=== PATIENT | male | born 1950 | race African-American/Black ===

== ENCOUNTER 2016-10-09 06:39 | Day surgery (SDC) | payer MEDICARE, OTHER ==
[2016-10-09] VITALS (7 sets, daily range): BP systolic 163–178; BP diastolic 79–101; PULSE 49–84; RESP 16–20; TEMP 96.4–97.7; O2SAT 92–99
[~2016-10-09] VITALS: Ht 185.4 cm; Wt 99.0 kg
[~2016-10-09 06:39] MED LIST: AMLO10TA2 PO; CALC0.5C6 PO; CARV12.52 PO; CLON0.1T PO; FINA5TAB2 PO; SEVEL800 PO; SPIR25TA PO
[2016-10-09] MEDS ORDERED: SODIUM CHLORIDE 5 ML FLUSH PRN IVF (07:15)
[2016-10-09 07:36] LABS: AUTOMATED NEUTROPHIL # 3.5 TH/MM3 (1.8-7.7); BASOPHIL % 0.4 % (0.0-2.0); EOSINOPHIL # 0.1 TH/MM3 (0-0.4); EOSINOPHIL % 2.3 % (0.0-4.0); HEMATOCRIT 27.5 % (39.0-51.0); LYMPHOCYTE # 1.6 TH/MM3 (1.0-4.8); MEAN CORPUSCULAR HEMOGLOBIN 24.1 PG (27.0-34.0); MEAN CORPUSCULAR HGB CONC 31.3 % (32.0-36.0); MONO % 12.5 % (0.0-8.0); NEUT % 57.8 % (16.0-70.0); PLATELET COUNT 120 TH/MM3 (150-450); RED BLOOD COUNT 3.57 MIL/MM3 (4.50-5.90); RED CELL DISTRIBUTION WIDTH 18.8 % (11.6-17.2)
[2016-10-09 07:38] LABS: HEMO FLAGS AUTO DIFF
[2016-10-09 07:45] LABS: APTT (PATIENT) 41.1 SEC (24.3-30.1); INTERNATIONAL NORMALIZED RATIO 1.1 RATIO; PROTHROMBIN TIME - PATIENT 12.2 SEC (9.8-11.6)
[2016-10-09 08:04] LABS: BICARBONATE 28.7 MEQ/L (21.0-32.0); POTASSIUM 3.7 MEQ/L (3.5-5.1)
[2016-10-09] MEDS ORDERED: VANCOMYCIN 1,000 MG/NS 250 ML IV ONE ×2 (08:15)
[2016-10-09 08:31] LABS: SCAN/DIFF AUTO DIFF CONFIRMED
[2016-10-09 08:32] LABS: KERATOCYTES OCC (NORMAL)
[2016-10-09] MEDS ORDERED: PROPOFOL 200 MG/20 ML AMP IV ONE (08:38)
[2016-10-09 08:47] LABS: CALCIUM-PROTEIN CORRECTED 6.7 MG/DL (8.5-10.1)
[2016-10-09] MEDS ORDERED: ceFAZolin 2 GM PREMIX 50 ML IV ONE (09:00)
[2016-10-09] MEDS ORDERED: SODIUM CHLORIDE 5 ML FLUSH BID IVF SCH (09:00)
[2016-10-09] MEDS ORDERED: fentaNYL CITRATE 250 MCG/5 ML AMP ONE (09:00)
[2016-10-09] MEDS ORDERED: MIDAZOLAM HCL 5 MG/5 ML VIAL ONE (09:00)
[2016-10-09] MEDS ORDERED: LIDOCAINE 1%/EPINEPHrine 1:100,000 SOLN 20 ML VIAL ONE (09:05)
--- NOTE | 2016-10-09 09:56 | PD.RAD ---
Post Procedure Progress Note Pre Procedure Diagnosis: (1) ESRD on peritoneal dialysis (2) Dialysis catheter clot or failure Post Procedure Diagnosis: (1) ESRD on peritoneal dialysis (2) Dialysis catheter clot or failure Procedure Date: Oct 09, 2016 Supervising Radiologist: Bharath Avila Anesthesia: Local, Conscious Sedation Plan of Activity Patient to Unit: [facility] Patient Condition: Good See PACS Report for procedural detail/treatment Central Venous Access Device Procedure 1 Left Internal Jugular Hemodialysis Catheter Tunneled Placement dual lumen Bharath Avila MD Oct 09, 2016 09:56
[2016-10-09] MEDS ORDERED: CARV12.5 PO (12:27)
[2016-10-09] MEDS ORDERED: LACTATED RINGER'S 1000 ML IV SCH (14:00)
[2016-10-09] MEDS ORDERED: SODIUM CHLORID 0.9% 500 ML IV SCH (14:00)
[2016-10-09] MEDS ORDERED: ceFAZolin 1,000 MG/NS 100 ML IV SCH ×2 (14:00)
[2016-10-09] MEDS ORDERED: INSULIN HUMAN REGULAR 1,000 UNITS/10 ML VIAL SQ PRN (14:00)
[2016-10-09] MEDS ORDERED: METOPROLOL TARTRATE 25 MG TAB PO PRN (14:00)
[2016-10-09] MEDS ORDERED: MIDAZOLAM HCL 2 MG/2 ML VIAL ONE (14:05)
--- NOTE | 2016-10-09 14:08 | RADRPT ---
EXAM DATE/TIME: 10/09/2016 08:59 [place] COMPARISON: No previous studies available for comparison. INDICATIONS : Patient is in need of placement of a left sided permacath for continued dialysis treatment due to PD catheter infection. MEDICAL HISTORY : History of renal insufficiency, CAD, HTN, LA, hypercholesteremia, polycystic kidney disease. SURGICAL HISTORY : History of PD cath placement and removal, permacath placement and removal, TURP, CABG, bilateral part ial renal artery emobolization. ENCOUNTER: Initial ACUITY: 2 months PAIN SCORE: 0/10 FLUORO TIME: 1.0 minutes SEDATION TIME: 30 minutes ACCESS: Left internal jugular vein SEDATION: 1.) 3.5 mg midazolam (Versed) IV 2.) 125 mcg fentanyl (Sublimaze) IV Prophylactic antibiotics were administered with appropriate pre-procedure timing. Vancomycin within 2 hours of procedure, Ancef (or alternative) within 1 hour of procedure. DEVICE: 1. 14 Slov[place] dual lumen 27 cm Conde II Plus catheter PROCEDURE : 1. Ultrasound-guided venipuncture. 2. PermaCath placement. 3. Conscious sedation with continuous EKG and oximetry monitoring. The risks, benefits and alternatives to the procedure were explained and verbal and written consent w as obtained. The site was prepped in sterile fashion. Full sterile technique was used, including ca p, mask, sterile gloves and gown and a large sterile sheet. Hand hygiene and 2% chlorhexidine and/or betadine/alcohol prep was utilized per protocol for cutaneous antisepsis. The skin and subcutaneous tissues were infiltrated with local anesthetic solution. With ultrasound and fluoroscopic guidance a dermatotomy was created over the prescribed vein. A micr opuncture set was used to access the targeted vein and serial dilatation was performed to accept the prescribed length catheter. A subcutaneous tunnel was created in a retrograde fashion the catheter w as pulled through the tunnel. The catheter was flushed and assembled and locked with heparin. The c atheter was sutured in place. Conscious sedation was performed with the prescribed dosages and duration as above. The patient tole rated the procedure well and there were no complications. EKG and oximetry remained stable throughou t the procedure. The patient was sent to post anesthesia recovery in stable condition. CONCLUSION: Uncomplicated PermaCath placement as above. Bharath Avila MD on October 09, 2016 at 14:05 Board Certified Radiologist. This report was verified electronically.
[2016-10-09] MEDS ORDERED: BUPIVACAINE/EPINEPHRINE 0.5% PF 30 ML VIAL ONE (14:32)
[2016-10-09] MEDS ORDERED: ACETAMINOPHEN/HYDROcodone 325 MG/7.5 MG TAB PO PRN (15:45)
[2016-10-09] MEDS ORDERED: DO NOT ADM ANY ANTICOAGULANT DRUGS XX PRN (15:45)
--- NOTE | 2016-10-10 15:09 | EKG ---
Date Performed: 10/09/2016 Time Performed: 13:15:12 PTAGE: 66 years EKG: Sinus rhythm WITH HIGH GRADE AV BLOCK MARKED LEFT AXIS DEVIATION LEFT BUNDLE BRANCH BLOCK Since prior tracing pat ient developed high grade AV block and what appears to be episodes of complete heart block with times of idioventricular escape rhythm. All of this is new compare to the prior tracing. Clinical correla tion is recommended ABNORMAL ECG PREVIOUS TRACING : 10/22/2014 10.08 DOCTOR: Dorothy Anton Interpretating Date/Time 10/10/2016 15:08:49
--- NOTE | 2016-10-13 17:23 | MP ---
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 PROCEDURE Removal of peritoneal dialysis catheter. SURGEON Saira Donald MD ANESTHESIA Local MAC DESCRIPTION OF PROCEDURE With the patient in the supine position IV sedation was induced, the abdomen thoroughly prepped with Betadine and draped in a sterile fashion. Following a protocol time-out, the skin and subcutaneous tissue surrounding the old catheter placement scar was infiltrated with 0.5% Marcaine with epinephrine. The old scar was elliptically excised and dissection continued sharply. Underlying sclerotic tissue. The catheter cuffs imbedded within the rectus muscle and fascia was mobilized free. The intraperitoneal portion of the catheter was removed entirely. The subcutaneous catheter cuff was also dissected free of adhesions and subcutaneous portion of the catheter removed entirely as well. Strict hemostasis was assured. The wound was irrigated with saline and the incision closed with continuous subcuticular 5-0 Monocryl. Reinforced with Steri-Strips and covered with sterile gauze. Instrument, needle, sponge count correct x2. No operative complications. The patient returned to the recovery room in stable condition having tolerated procedure well. MD CHALO Rivera/maria victoria /5:44 PM /5:16 PM [facility]ITALSl[facility]
== END 2016-10-09 12:10 | disposition home or self-care (01) ==
LOC: HROP 06:39 → HRIP 06:45 → HROP 12:10
PROVIDERS: ATTEND Surgery Vascular Surgery
DX: T85.71XA Infection and inflammatory reaction due to peritoneal dialysis catheter, initial encounter (principal); N18.6 End stage renal disease; I12.0 Hypertensive chronic kidney disease with stage 5 chronic kidney disease or end stage renal disease; I25.10 Atherosclerotic heart disease of native coronary artery without angina pectoris; E78.00 Pure hypercholesterolemia, unspecified; I25.2 Old myocardial infarction; Z95.1 Presence of aortocoronary bypass graft; Z99.2 Dependence on renal dialysis
CPT/HCPCS: 00730; 36558; 49422; 76937; 77001; 80048; 84155; 85025; 85610; 85730; 93005; 99152; 99153; C1750; C1769; J0690; J1644; J2250; J3010; J3370; J7050

== ENCOUNTER 2016-10-11 21:16 | Emergency (ER) | payer MEDICARE, OTHER ==
[~2016-10-11] VITALS: Ht 185.4 cm; Wt 90.0 kg
[~2016-10-11 21:16] MED LIST changes: -CALC0.5C6 PO; +CARV12.5 PO; -CARV12.52 PO
[2016-10-11 21:26] VITALS: BP 222/93; PULSE 97; RESP 16; TEMP 98; O2SAT 98
[2016-10-11] MEDS ORDERED: GELFOAM SIZE 100 TOPICAL ONE (21:45)
[2016-10-11] MEDS ORDERED: niCARdipine INJ 25 MG in SODIUM CHLOR 0.9% 250 ML INJ 250 ML IV SCH (21:45)
[2016-10-11] MEDS ORDERED: SODIUM CHLORIDE 0.9% FLUSH 5 ML FLUSH IVF PRN (21:45)
[2016-10-11 21:53] VITALS: BP 211/95; PULSE 82; RESP 16; O2SAT 94
[2016-10-11 23:00] VITALS: BP 201/98; PULSE 92; RESP 16; O2SAT 95
--- NOTE | 2016-10-11 23:02 | PD ---
HPI Chief Complaint: Bleeding Time Seen by Provider: 21:30 Travel History International Travel<30 days: No Contact w/Intl Traveler<30days: No Traveled to known affect area: No History of Present Illness HPI 66-year-old male with end-stage renal disease came in for continuous bleeding from his scrotal wound. Patient has chronic hydradenitis in his scrotal area and from time to time they open up and drain pus. He had an opening on the left side of his scrotal skin 2-3 days ago which drained pus but since then has been bleeding continuously. He was at the hemodialysis center where they tried to cauterize the wound and finished the dialysis but when it continued to bleed he was recommended to come to the emergency room. He was given a dose of clonidine because of his blood pressure was high. Here his blood pressure was 222/149 upon arrival. Patient is in somewhat of a discomfort in his scrotal area but says the pain is not excruciating. As per the is not the first time this has happened. Patient is awake and talking. He is answering questions appropriately. When his pants and underwear was taken out to examine the area his underwear was covered in blood. [facility] Past Medical History Narrative Medical List of his past medical history is reviewed from the nursing note. Anemia: Yes Arthritis: No Asthma: Yes (YEARS AGO) Autoimmune Disease: No Anxiety: No Depression: No Heart Rhythm Problems: No Cancer: No Cardiovascular Problems: Yes (HEART ATTACK 2009) High Cholesterol: Yes Chemotherapy: No Chest Pain: Yes (cabgx2) Congestive Heart Failure: No COPD: No Cerebrovascular Accident: No Diabetes: No Dialysis: Yes (PERITONEAL ) Diminished Hearing: No Endocrine: No Gastrointestinal Disorders: Yes GERD: No Glaucoma: No Gout: Yes Genitourinary: No Headaches: No Hepatitis: No Hiatal Hernia: No Hypertension: Yes Immune Disorder: No Implanted Vascular Access Dvce: Yes Kidney Stones: No Musculoskeletal: No Neurologic: No Psychiatric: No Reproductive: No Respiratory: No Migraines: No Myocardial Infarction: No Radiation Therapy: No Renal Failure: Yes (peritoneal dialysis [id number]) Seizures: No Sickle Cell Disease: No Sleep Apnea: No Thyroid Disease: No Ulcer: No PNEUMOCCOCAL Vaccine (Year): 2 Past Surgical History Abdominal Surgery: Yes (2 PREVIOUS PERITONEAL DIALYSIS CATHETERS) AICD: No Appendectomy: No Arteriovenous Shunt: No Body Medical Devices: CARDIAC STENTS X1. LEFT UPPER CHEST PERM CATH, RIGHT ABD PERITONEAL CATH Cardiac Surgery: Yes (CABG X3, 1 STENT) Cholecystectomy: No Ear Surgery: No Endocrine Surgery: No Eye Surgery: No Genitourinary Surgery: Yes (TURP) Gynecologic Surgery: No Insulin Pump: No Joint Replacement: No Neurologic Surgery: No Oral Surgery: No Pacemaker: No Thoracic Surgery: Yes (LEFT PERM CATH INSERTED TODAY 10/09/16. 2 PREVIOUS PERM CATH) Other Surgery: Yes (PERITONEAL DIALYSIS ACCESS PLACED 2006 vas cath rt) Social History Alcohol Use: No Tobacco Use: No (QUIT 09/11 PPD) Substance Use: No Allergies-Medications (Allergen,Severity, Reaction): Coded Allergies: No Known Allergies (Verified , 10/11/16) Comments No known drug allergies. Reported Meds & Prescriptions Reported Meds & Active Scripts Active Reported Coreg (Carvedilol) 12.5 Mg Tab 12.5 Mg PO DAILY PRN Renvela (Sevelamer Carbonate) 800 Mg Tab 800 Mg PO TID Clonidine (Clonidine HCl) 0.1 Mg Tab 0.1 Mg PO BID Spironolactone 25 Mg Tab 25 Mg PO DAILY Finasteride 5 Mg Tab 5 Mg PO DAILY Do not crush. Amlodipine (Amlodipine Besylate) 10 Mg Tab 10 Mg PO BID Narrative Medication List of his home medications reviewed from the nursing note. Review of Systems Except as stated in HPI: all other systems reviewed are Neg Physical Exam Narrative GENERAL: Awake, alert, moderate distress SKIN: Warm and dry. HEAD: Atraumatic. Normocephalic. EYES: Pupils equal and round. No scleral icterus. No injection or drainage. ENT: No nasal bleeding or discharge. Mucous membranes pink and moist. NECK: Trachea midline. No JVD. CARDIOVASCULAR: Regular rate and rhythm. No murmur appreciated. RESPIRATORY: No accessory muscle use. Clear to auscultation. Breath sounds equal bilaterally. GASTROINTESTINAL: Abdomen soft, non-tender, nondistended. Hepatic and splenic margins not palpable. : Swollen scrotum, nontender, left scrotal wall in the inferior part has an opening of less than 0.5 mm that's oozing blood slowly. MUSCULOSKELETAL: No obvious deformities. No clubbing. No cyanosis. No edema. NEUROLOGICAL: Awake and alert. No obvious cranial nerve deficits. Motor grossly within normal limits. Normal speech. PSYCHIATRIC: Appropriate mood and affect; insight and judgment normal. Data Data Last Documented VS Vital Signs Date Time Temp Pulse Resp B/P Pulse Ox O2 Delivery O2 Flow Rate FiO2 10/12/16 00:01 94 18 186/88 95 Room Air 10/11/16 21:26 98.0 Orders Ecg Monitoring (10/11/16 21:37) Iv Access Insert/Monitor (10/11/16 21:37) Oximetry (10/11/16 21:37) Sodium Chloride 0.9% Flush (Ns Flush) (10/11/16 21:45) Nicardipine Inj (Cardene Inj) (10/11/16 21:45) Gelfoam 100 Top (Gelfoam 100 Top) (10/11/16 21:45) MDM Medical Decision Making Medical Screen Exam Complete: Yes Emergency Medical Condition: Yes Medical Record Reviewed: Yes Differential Diagnosis Venous bleeding, nonhealing wound Narrative Course 11 PM patient refused all the blood work that was ordered. He said he cannot receive any blood products so there was no point doing any blood test. Cardene drip was ordered and patient has refused that as well. I ordered thrombin Gelfoam which the nurse has applied. Patient will be sent home AMA. He is in full capacity to make decisions for himself and understands the risks and benefits of leaving without any test done or blood pressure lowered. Procedures EKG Prior to Arrival: No Diagnosis Primary Impression: Malignant hypertension Additional Impressions: Bleeding from wound Hidradenitis Disposition: AGAINST MEDICAL ADVICE Condition: Quyen Rodriguez MD Oct 11, 2016 23:02 Condition: Quyen Rodriguez MD Oct 11, 2016 23:02
[2016-10-11 23:49] VITALS: BP 204/95; PULSE 88; RESP 16; O2SAT 95
[2016-10-12 00:01] VITALS: BP 186/88; PULSE 94; RESP 18; O2SAT 95
== END 2016-10-12 00:10 | disposition left against medical advice (07) ==
LOC: NEPC 21:16
DX: I12.0 Hypertensive chronic kidney disease with stage 5 chronic kidney disease or end stage renal disease (principal); N18.6 End stage renal disease; L73.2 Hidradenitis suppurativa; Z99.2 Dependence on renal dialysis
CPT/HCPCS: 99283

== ENCOUNTER → 2016-11-16 | Day surgery (SDC) | payer MEDICARE, OTHER ==
[~2016-11-16] VITALS: Ht 185.4 cm; Wt 92.6 kg
[~2016-11-16] MED LIST changes: +ACETAMINOPHEN 1000 MG/100 ML VIAL IV ONE; +BUPIVACAINE/EPINEPHRINE 0.25% 50 ML VIAL ONE; +BUPIVACAINE/EPINEPHRINE 0.5% 50 ML VIAL ONE; +FAMOTIDINE 20 MG/2 ML VIAL ONE; +HYDROmorphone HCL PF 2 MG/ML VIAL ONE; +INSULIN HUMAN REGULAR 1,000 UNITS/10 ML VIAL SQ PRN; +LACTATED RINGER'S 1000 ML IV SCH; +METOPROLOL TARTRATE 25 MG TAB PO PRN; +MIDAZOLAM HCL 2 MG/2 ML VIAL ONE; +NEOSTIGMINE 3 MG/3 ML SYR IV ONE; +ONDANSETRON HCL 4 MG/2 ML VIAL IV PUSH ONE; +PHENYLEPH/NS 1000 MCG/10 ML SYR IV ONE; +PROPOFOL 200 MG/20 ML AMP IV ONE; +SODIUM CHLOR 0.9% 250 ML INJ 250 ML IV ONE; +SODIUM CHLORID 0.9% 500 ML IV SCH; +SUGAMMADEX SODIUM 200 MG/2 ML VIAL IV PUSH ONE; +VANCOMYCIN HCL 1000 MG VIAL ONE; +ceFAZolin 1,000 MG/NS 100 ML IV SCH; +ePHEDrine/NS 25 MG/5 ML SYR IV ONE; +fentaNYL CITRATE 250 MCG/5 ML AMP ONE
[2016-11-16 06:33] VITALS: BP 185/103; PULSE 70; RESP 18; TEMP 97.9; O2SAT 100
[2016-11-16 06:45] LABS: AUTOMATED NEUTROPHIL # 10.8 TH/MM3 (1.8-7.7); BASOPHIL % 0.2 % (0.0-2.0); EOSINOPHIL # 0.1 TH/MM3 (0-0.4); EOSINOPHIL % 0.6 % (0.0-4.0); HEMATOCRIT 31.2 % (39.0-51.0); LYMPH % 14.6 % (9.0-44.0); LYMPHOCYTE # 2.1 TH/MM3 (1.0-4.8); MEAN CELL VOLUME 74.4 FL (80.0-100.0); MEAN CORPUSCULAR HEMOGLOBIN 22.7 PG (27.0-34.0); MEAN CORPUSCULAR HGB CONC 30.4 % (32.0-36.0); MONO % 8.3 % (0.0-8.0); NEUT % 76.3 % (16.0-70.0); PLATELET COUNT 202 TH/MM3 (150-450); RED BLOOD COUNT 4.19 MIL/MM3 (4.50-5.90); RED CELL DISTRIBUTION WIDTH 18.5 % (11.6-17.2); WHITE BLOOD COUNT 14.1 TH/MM3 (4.0-11.0)
[2016-11-16 06:47] LABS: HEMO FLAGS AUTO DIFF
[2016-11-16 07:04] LABS: BICARBONATE 29.1 MEQ/L (21.0-32.0); POTASSIUM 3.9 MEQ/L (3.5-5.1)
[2016-11-16 07:43] LABS: CORRECTED NUCLEATED RBC 1 /100 WBC (0-0); EOSINOPHILS 1 % (0-4); NEUTROPHIL # MANUAL DIFF 10.2 TH/MM3 (1.8-7.7); POLYS (SEG NEUTROPHILS) 72 % (16-70); WBC DIFF SAMPLE 100
[2016-11-16 07:44] LABS: OVALOCYTES 1+ (NORMAL); PLATELET ESTIMATE SMEAR NORMAL (NORMAL); PLATELET MORPHOLOGY NORMAL (NORMAL); SCAN/DIFF FINAL DIFF MANUAL
[2016-11-16 10:45] VITALS: BP 142/72; PULSE 58; RESP 16; O2SAT 100
--- NOTE | 2016-11-21 17:24 | MP ---
cc: JAMES VALDES M.D., JAMES DATE OF SURGERY: 11/16/2016 PREOPERATIVE DIAGNOSIS Chronic kidney disease - needs permanent peritoneal dialysis access. POSTOPERATIVE DIAGNOSIS Chronic kidney disease - needs permanent peritoneal dialysis access. PROCEDURE Laparoscopic-assisted peritoneal dialysis catheter placement. SURGEON Shubham Donald MD ANESTHESIA General endotracheal/local. DESCRIPTION OF OPERATIVE PROCEDURE With the patient in the supine position and under general endotracheal anesthesia, the abdomen was prepped with Betadine and draped in a sterile fashion. One gram of Ancef and one gram of vancomycin were administered intravenously and following a protocol timeout, the skin and subcutaneous tissue at the two proposed incision sites preemptively infiltrated with 0.5% Marcaine with epinephrine. A transverse 2 cm incision was performed along the left lateral infracostal region, deepened through the anterior rectus sheath, rectus muscle fibers and posterior rectus sheath and peritoneum incised. A 5 mm Surgiport was bluntly advanced into the peritoneal space and the abdomen insufflated with carbon dioxide. A separate 2 cm incision was performed to the left, inferior to the umbilicus and deepened through the anterior rectus sheath. An 18 gauge needle was guided obliquely and caudally between the anterior and posterior rectus sheaths and punctured under laparoscopic visualization through the posterior rectus sheath and peritoneum and directed towards the midpelvis. A J-wire was advanced under laparoscopic guidance into the midpelvis. The needle was exchanged for a catheter insertion sheath. A coiled peritoneal dialysis catheter was delivered through the tearaway sheath and positioned within the midpelvis. The internal cuff was placed subjacent to the rectus sheathotomy and the subcutaneous portion tunneled and exited through a separate stab incision superolaterally. The titanium adapter was applied to the catheter tip which was flushed with saline and capped. The abdomen was desufflated. The left subcostal rectus incision was reapproximated with continuous 2-0 PDS. The skin was reapproximated with continuous subcuticular 5-0 Monocryl. The catheter exit site was dressed with gauze and Tegaderm. There were no operative complications. Instrument, needle, sponge count correct x2. The patient returned to the recovery room in stable condition having tolerated the procedure well. MD CHALO Rivera/BJF /8:45 AM /4:14 PM
--- NOTE | 2016-11-21 18:34 | MP ---
cc: JAMES VALDES M.D., JAMES DATE OF SURGERY 11/16/16 PREOPERATIVE DIAGNOSIS Chronic kidney disease - needs peritoneal dialysis access. POSTOPERATIVE DIAGNOSIS Chronic kidney disease - needs peritoneal dialysis access. PROCEDURE Laparoscopic-assisted peritoneal dialysis catheter placement. SURGEON Gilbert Donald MD ANESTHESIA General endotracheal/local PROCEDURE IN DETAIL With the patient in the supine position, general endotracheal anesthesia was induced, the abdomen thoroughly prepped with Betadine and draped in a sterile fashion. One gram of Ancef and one gram of vancomycin administered intravenously. Following a protocol time-out, skin and subcutaneous tissue at two proposed incision sites preemptively infiltrated with 0.5% Marcaine with epinephrine. A transverse 2 cm incision was performed along the left lateral infracostal region. The incision was deepened through the anterior rectus fascia. Rectus muscles were , posterior rectus sheath and peritoneum incised. A 5 mm Surgiport was bluntly advanced into the peritoneal space and the abdomen insufflated with carbon dioxide. A separate 2 cm transverse incision was performed immediately lateral and inferior to the umbilicus. The incision was deepened through the anterior rectus sheath. An 18 gauge needle was navigated obliquely and caudally between the anterior and posterior rectus sheath and, under laparoscopic visualization, punctured through the posterior rectus sheath and peritoneum and directed toward the mid pelvis. A J-wire was advanced into the mid pelvis. The needle was exchanged for a catheter insertion sheath. A coiled peritoneal dialysis catheter was delivered through the tear-away sheath and the coil positioned within the mid pelvis. The internal catheter cuff was placed subjacent to the rectus fascial incision. The subcutaneous portion of the catheter was tunneled and brought out through a separate stab incision superolaterally. The catheter was trimmed to appropriate length. The titanium adapter was applied, the catheter flushed and capped. The abdomen was desufflated. The left rectus incision was closed with interrupted 2-0 PDS. Both skin incisions were closed with continuous subcuticular 5-0 Monocryl. The catheter exit site was dressed with gauze and Tegaderm. There were no operative complications. Instrument, needle, sponge count correct x2. The patient returned to the recovery room in stable condition having tolerated procedure well. MD CHALO Rivera/ /8:37 AM /5:23 PM
== END | disposition home or self-care (01) ==
LOC: HSDC 05:53
PROVIDERS: ATTEND Surgery Vascular Surgery
DX: N18.6 End stage renal disease (principal); I12.0 Hypertensive chronic kidney disease with stage 5 chronic kidney disease or end stage renal disease; Z99.2 Dependence on renal dialysis
CPT/HCPCS: 00790; 49324; 80048; 84155; 85007; 85027; C1750; J0131; J0690; J2250; J2370; J2405; J2710; J3010; J3370; J7040; J7050; J1170

== ENCOUNTER 2016-11-28 13:42 | Emergency (ER) | payer MEDICARE, OTHER ==
[~2016-11-28] VITALS: Ht 185.4 cm; Wt 100.5 kg
[~2016-11-28 13:42] MED LIST changes: -ACETAMINOPHEN 1000 MG/100 ML VIAL IV ONE; -BUPIVACAINE/EPINEPHRINE 0.25% 50 ML VIAL ONE; -BUPIVACAINE/EPINEPHRINE 0.5% 50 ML VIAL ONE; -FAMOTIDINE 20 MG/2 ML VIAL ONE; -HYDROmorphone HCL PF 2 MG/ML VIAL ONE; -INSULIN HUMAN REGULAR 1,000 UNITS/10 ML VIAL SQ PRN; -LACTATED RINGER'S 1000 ML IV SCH; -METOPROLOL TARTRATE 25 MG TAB PO PRN; -MIDAZOLAM HCL 2 MG/2 ML VIAL ONE; -NEOSTIGMINE 3 MG/3 ML SYR IV ONE; -ONDANSETRON HCL 4 MG/2 ML VIAL IV PUSH ONE; -PHENYLEPH/NS 1000 MCG/10 ML SYR IV ONE; -PROPOFOL 200 MG/20 ML AMP IV ONE; -SODIUM CHLOR 0.9% 250 ML INJ 250 ML IV ONE; -SODIUM CHLORID 0.9% 500 ML IV SCH; -SUGAMMADEX SODIUM 200 MG/2 ML VIAL IV PUSH ONE; -VANCOMYCIN HCL 1000 MG VIAL ONE; -ceFAZolin 1,000 MG/NS 100 ML IV SCH; -ePHEDrine/NS 25 MG/5 ML SYR IV ONE; -fentaNYL CITRATE 250 MCG/5 ML AMP ONE
[2016-11-28 13:44] VITALS: BP 143/82; PULSE 105; RESP 20; TEMP 98.6; O2SAT 98
--- NOTE | 2016-11-28 15:31 | PD ---
HPI Chief Complaint: Pain: Acute or Chronic Time Seen by Provider: 15:27 Travel History International Travel<30 days: No Contact w/Intl Traveler<30days: No Traveled to known affect area: No History of Present Illness HPI 66-year-old male presents to the emergency department for evaluation of abscesses to his bilateral buttocks he states he has had for 1 week. He reports history of hidradenitis and states he typically gets them in his groin, but he has had them in his buttocks before. Patient has history of end-stage renal disease. He just recently got a new peritoneal dialysis catheter so he has been receiving hemodialysis Sunday, Sunday, Sunday through a Vas-Cath to the left upper chest. He received dialysis yesterday. Patient's activities counselor is Dr. Elkin Mayes. He denies any chest pain or short of breath. No abdominal pain. No nausea or vomiting. PFSH Past Medical History Anemia: Yes Arthritis: No Asthma: Yes (YEARS AGO) Autoimmune Disease: No Anxiety: No Depression: No Heart Rhythm Problems: No Cancer: No Cardiovascular Problems: Yes High Cholesterol: Yes Chemotherapy: No Chest Pain: Yes (cabgx2) Congestive Heart Failure: No COPD: No Cerebrovascular Accident: No Diabetes: No Dialysis: Yes (PERITONEAL ) Diminished Hearing: No Endocrine: No Gastrointestinal Disorders: Yes GERD: No Glaucoma: No Gout: Yes Genitourinary: No Headaches: No Hepatitis: No Hiatal Hernia: No Hypertension: Yes Immune Disorder: No Implanted Vascular Access Dvce: Yes Kidney Stones: No Musculoskeletal: No Neurologic: No Psychiatric: No Reproductive: No Respiratory: No Migraines: No Myocardial Infarction: No Radiation Therapy: No Renal Failure: Yes (peritoneal dialysis [id number]) Seizures: No Sickle Cell Disease: No Sleep Apnea: No Thyroid Disease: No Ulcer: No PNEUMOCCOCAL Vaccine (Year): 2 Past Surgical History Abdominal Surgery: Yes (2 PREVIOUS PERITONEAL DIALYSIS CATHETERS) AICD: No Appendectomy: No Arteriovenous Shunt: No Body Medical Devices: CARDIAC STENTS X1. LEFT UPPER CHEST PERM CATH Cardiac Surgery: Yes (CABG X3, 1 STENT) Cholecystectomy: No Ear Surgery: No Endocrine Surgery: No Eye Surgery: No Genitourinary Surgery: Yes (TURP) Gynecologic Surgery: No Insulin Pump: No Joint Replacement: No Neurologic Surgery: No Oral Surgery: No Pacemaker: No Thoracic Surgery: Yes (LEFT PERM CATH . 2 PREVIOUS PERM CATH) Other Surgery: Yes (PERITONEAL DIALYSIS ACCESS PLACED 2006 vas cath rt) Social History Alcohol Use: No Tobacco Use: No (QUIT 09/11 PPD) Substance Use: No Allergies-Medications (Allergen,Severity, Reaction): Coded Allergies: No Known Allergies (Verified , 11/14/16) Reported Meds & Prescriptions Reported Meds & Active Scripts Active Reported Coreg (Carvedilol) 12.5 Mg Tab 12.5 Mg PO DAILY PRN Renvela (Sevelamer Carbonate) 800 Mg Tab 800 Mg PO TID Clonidine (Clonidine HCl) 0.1 Mg Tab 0.1 Mg PO BID Spironolactone 25 Mg Tab 25 Mg PO DAILY Finasteride 5 Mg Tab 5 Mg PO DAILY Do not crush. Amlodipine (Amlodipine Besylate) 10 Mg Tab 10 Mg PO BID Review of Systems Except as stated in HPI: all other systems reviewed are Neg Physical Exam Narrative GENERAL: Well-developed well-nourished male patient, afebrile. SKIN: Warm and dry. Patient has induration and bleeding noted to bilateral buttocks with tenderness. Foul odor is noted. This does not appear to extend to the anus, but exam is limited to do being in a triage room. Vas-Cath noted to left upper chest.. No dialysis catheter noted. HEAD: Normocephalic. Atraumatic. EYES: No scleral icterus. No injection or drainage. NECK: Supple, trachea midline. No JVD or lymphadenopathy. CARDIOVASCULAR: Regular rate and rhythm without murmurs, gallops, or rubs. RESPIRATORY: Breath sounds equal bilaterally. No accessory muscle use. Lungs sounds clear to auscultation. GASTROINTESTINAL: Abdomen soft, non-tender, nondistended. MUSCULOSKELETAL: No cyanosis, or edema. BACK: Nontender without obvious deformity. No CVA tenderness. Data Data Last Documented VS Vital Signs Date Time Temp Pulse Resp B/P Pulse Ox O2 Delivery O2 Flow Rate FiO2 11/28/16 15:52 112 20 134/66 98 Room Air 11/28/16 13:44 98.6 Orders Complete Blood Count With Diff (11/28/16 15:26) Basic Metabolic Panel (Bmp) (11/28/16 15:26) Prothrombin Time / Inr (Pt) (11/28/16 15:26) Act Partial Throm Time (Ptt) (3/21/17 15:26) Labs Laboratory Tests Test 11/28/16 15:32 White Blood Count 13.0 TH/MM3 Red Blood Count 4.31 MIL/MM3 Hemoglobin 10.1 GM/DL Hematocrit 32.7 % Mean Corpuscular Volume 75.9 FL Mean Corpuscular Hemoglobin 23.4 PG Mean Corpuscular Hemoglobin 30.8 % Concent Red Cell Distribution Width 20.5 % Platelet Count 139 TH/MM3 Mean Platelet Volume 9.0 FL Neutrophils (%) (Auto) 84.9 % Lymphocytes (%) (Auto) 8.4 % Monocytes (%) (Auto) 6.3 % Eosinophils (%) (Auto) 0.2 % Basophils (%) (Auto) 0.2 % Neutrophils # (Auto) 11.0 TH/MM3 Lymphocytes # (Auto) 1.1 TH/MM3 Monocytes # (Auto) 0.8 TH/MM3 Eosinophils # (Auto) 0.0 TH/MM3 Basophils # (Auto) 0.0 TH/MM3 CBC Comment AUTO DIFF Differential Comment AUTO DIFF CONFIRMED Platelet Estimate LOW Platelet Morphology Comment NORMAL Keratocytes 1+ Prothrombin Time 12.2 SEC Prothromb Time International 1.1 RATIO Ratio Activated Partial 33.4 SEC Thromboplast Time Sodium Level 136 MEQ/L Potassium Level 5.1 MEQ/L Chloride Level 99 MEQ/L Carbon Dioxide Level 26.9 MEQ/L Anion Gap 10 MEQ/L Blood Urea Nitrogen 42 MG/DL Creatinine 8.21 MG/DL Estimat Glomerular Filtration 8 ML/MIN Rate Random Glucose 95 MG/DL Calcium Level 8.7 MG/DL MDM Medical Decision Making Medical Screen Exam Complete: Yes Emergency Medical Condition: Yes Medical Record Reviewed: Yes Differential Diagnosis Hidradenitis versus perirectal abscess versus fistula versus rectal abscess Narrative Course 66-year-old male presents to the emergency department for evaluation abscesses to his bilateral buttocks with a history of hidradenitis. Patient is uncomfortable. Upon examination, there is a foul smell and bloody drainage noted to the buttocks. Exam is limited due to being in a triage room and I'm unable to definitively tell does extend to the anus. CBC, BMP, PTT, PTT/INR are ordered and pending. Workup is initiated in triage. Once a medical bed becomes available, patient will be transferred and care assumed by that provider. Patient left AMA before he was able to be transferred to a medical bed. Diagnosis Primary Impression: Left against medical advice Disposition: 07 AGAINST MEDICAL ADVICE Mariola Abbott Nov 28, 2016 15:31
[2016-11-28 15:52] VITALS: BP 134/66; PULSE 112; RESP 20; O2SAT 98
[2016-11-28 16:30] LABS: BASOPHIL % 0.2 % (0.0-2.0); EOSINOPHIL % 0.2 % (0.0-4.0); HEMATOCRIT 32.7 % (39.0-51.0); LYMPH % 8.4 % (9.0-44.0); LYMPHOCYTE # 1.1 TH/MM3 (1.0-4.8); MEAN CELL VOLUME 75.9 FL (80.0-100.0); MEAN CORPUSCULAR HEMOGLOBIN 23.4 PG (27.0-34.0); MEAN CORPUSCULAR HGB CONC 30.8 % (32.0-36.0); MONO % 6.3 % (0.0-8.0); NEUT % 84.9 % (16.0-70.0); PLATELET COUNT 139 TH/MM3 (150-450); RED BLOOD COUNT 4.31 MIL/MM3 (4.50-5.90); RED CELL DISTRIBUTION WIDTH 20.5 % (11.6-17.2)
[2016-11-28 16:34] LABS: APTT (PATIENT) 33.4 SEC (24.3-30.1); INTERNATIONAL NORMALIZED RATIO 1.1 RATIO; PROTHROMBIN TIME - PATIENT 12.2 SEC (9.8-11.6)
[2016-11-28 16:36] LABS: BICARBONATE 26.9 MEQ/L (21.0-32.0); POTASSIUM 5.1 MEQ/L (3.5-5.1)
[2016-11-28 16:41] LABS: HEMO FLAGS AUTO DIFF
[2016-11-28 17:38] LABS: KERATOCYTES 1+ (NORMAL); PLATELET ESTIMATE SMEAR LOW (NORMAL); PLATELET MORPHOLOGY NORMAL (NORMAL); SCAN/DIFF AUTO DIFF CONFIRMED
== END 2016-11-28 16:00 | disposition left against medical advice (07) ==
LOC: NETRI 13:42
DX: L02.31 Cutaneous abscess of buttock (principal); I12.0 Hypertensive chronic kidney disease with stage 5 chronic kidney disease or end stage renal disease; N18.6 End stage renal disease; Z99.2 Dependence on renal dialysis
CPT/HCPCS: 80048; 85025; 85610; 85730; 99283

== ENCOUNTER → 2017-11-13 | Day surgery (SDC) | payer MEDICARE, OTHER ==
[~2017-11-13] VITALS: Ht 185.4 cm; Wt 100.0 kg
[~2017-11-13] MED LIST changes: +*ENALAPRILAT 1.25 MG/ML VIAL PERIprocedural Use ONLY ONE; +ACETAMINOPHEN/HYDROcodone 325 MG/5 MG TAB PO PRN; +BUPIVACAINE/EPINEPHRINE 0.5% PF 30 ML VIAL ONE; +CALC0.5C PO; +CHLORHEXIDINE GLUCONATE 2 % 1 PACK (2 CLOTHS) TOPICAL PRN; +DO NOT ADM ANY ANTICOAGULANT DRUGS PRN; +FERR1TAB16 PO; +HEPARIN SODIUM - IV 10,000 UNITS/10 ML VIAL ONE; +HEPARIN SODIUM - IV 2,000 UNITS/2 ML VIAL IV FLUSH PRN; +HYDR-3801 PO; +INFL100P IV; +INSULIN HUMAN REGULAR 1,000 UNITS/10 ML VIAL SQ PRN; +ISOS60TA PO; +LACTATED RINGER'S 1000 ML IV PRN; +LIDOCAINE 1%/EPINEPHrine 1:100,000 SOLN 30 ML VIAL ONE; +LIDOCAINE HCL 1% PF 5 ML SYRINGE OTHER ONE; +METOPROLOL TARTRATE 25 MG TAB PO PRN; +MIDAZOLAM HCL 2 MG/2 ML VIAL ONE; +POVIDONE IODINE 5% (ANTISEPSIS KIT) 4 APPLICATIONS EACH NARE PRN; +PRAV40TA2 PO; +PROPOFOL 200 MG/20 ML AMP IV ONE; +SODIUM CHLOR 0.9% 250 ML INJ 500 ML ONE; +SODIUM CHLORID 0.9% 500 ML IV PRN; +SODIUM CHLORIDE 0.9% FLUSH 10 ML FLUSH IV FLUSH PRN; +VANCOMYCIN HCL 1000 MG VIAL ONE; +ceFAZolin 1,000 MG/NS 100 ML IV SCH
[2017-11-13 10:41] LABS: AUTOMATED NEUTROPHIL # 3.8 TH/MM3 (1.8-7.7); BASOPHIL % 0.3 % (0.0-2.0); EOSINOPHIL # 0.1 TH/MM3 (0-0.4); EOSINOPHIL % 0.9 % (0.0-4.0); HEMATOCRIT 29.1 % (39.0-51.0); HEMOGLOBIN 9.4 GM/DL (13.0-17.0); LYMPH % 22.3 % (9.0-44.0); LYMPHOCYTE # 1.3 TH/MM3 (1.0-4.8); MEAN CELL VOLUME 75.7 FL (80.0-100.0); MEAN CORPUSCULAR HEMOGLOBIN 24.4 PG (27.0-34.0); MEAN CORPUSCULAR HGB CONC 32.3 % (32.0-36.0); MEAN PLATELET VOLUME 8.3 FL (7.0-11.0); MONO % 9.9 % (0.0-8.0); MONOCYTE # 0.6 TH/MM3 (0-0.9); NEUT % 66.6 % (16.0-70.0); PLATELET COUNT 106 TH/MM3 (150-450); RED BLOOD COUNT 3.84 MIL/MM3 (4.50-5.90); RED CELL DISTRIBUTION WIDTH 20.2 % (11.6-17.2); WHITE BLOOD COUNT 5.6 TH/MM3 (4.0-11.0)
[2017-11-13 10:54] LABS: BICARBONATE 26.5 MEQ/L (21.0-32.0); CALCIUM 8.2 MG/DL (8.5-10.1)
[2017-11-13 11:01] LABS: CREATININE 16.25 MG/DL (0.60-1.30)
--- NOTE | 2017-11-13 12:49 | MB ---
cc: Shubham Donald MD, Vinod B MD DATE OF CONSULT: 11/13/2017 REASON FOR CONSULTATION: Infection, subcutaneous tunnel PD catheter tract - medically intractable. HISTORY OF PRESENT ILLNESS: This 67-year-old hypertensive male has chronic kidney disease requiring maintenance dialysis. One year ago, a peritoneal dialysis catheter was placed and has subsequently functioned well for peritoneal dialysis access. However, over the past 6-8 weeks, he developed persistent, purulent drainage from the PD catheter exit tunnel. Despite broad-spectrum IV antibiotic therapy including vancomycin, the infection persists. Dr. Mayes has requested removal of the PD catheter. PAST MEDICAL HISTORY: 1. Hypertension. 2. Coronary artery disease, status post silent AR. 3. Third degree block evaluated by Dr. Luke, 03/2017. 4. Hidradenitis suppurativa, groin and perianal areas - chronic. MEDICATIONS: Are detailed in the med reconciliation form. PHYSICAL EXAMINATION: GENERAL: Well-developed, well-nourished 67-year-old male with very pleasant affect. LUNGS: Symmetrically expanded and clear. CARDIAC: Rhythm is irregularly irregular with normal ventricular rate. A III/ holosystolic murmur, left sternal border - nonradiating. No carotid bruits. No neck vein distention or HJR. ABDOMEN: Protuberant and soft. Multiple surgical scars consistent with 2 previous peritoneal dialysis catheter placements noted. Subumbilical scar consistent with umbilical herniorrhaphy. The PD catheter exits the left mid rectus region. The subcutaneous catheter tract is diffusely indurated, slightly erythematous with seropurulent drainage from the catheter exit site. No peritoneal signs. Chronic hidradenitis type scarring in both groin areas - no active drainage at present. EXTREMITIES: Good joint range of motion. Edema is present in both ankles and feet extending into the calf regions, slightly more prominent on the left than right. Negative Homans sign. No calf tenderness. Radial pulses are trace right, 2+ left. Femoral pulses are 2+ bilaterally. NEUROLOGIC: Nonfocal. I reviewed plans with Mr. Kumar and his : 1. Removal of PD catheter. 2. Placement of tunneled internal jugular dual-lumen hemodialysis catheter. 3. Bilateral lower extremity venous ultrasound. I explained potential risks and possible complications associated with removal of the PD catheter and placement of the dual-lumen jugular catheter. I also telephoned Dr. Luke's physician machine operator assistant, CRUZ Gomez. I reviewed the patient's cardiac history and newly diagnosed atrial fibrillation. Mr. Kumar currently has no cardiac symptoms. Previously, plans were to proceed with pacemaker placement once his previous infection had cleared. Unfortunately, pacemaker placement was never accomplished. He now has a new infection and Christiano Crane states that no further cardiac intervention would be undertaken at this time, but encouraged the patient to return to the shop firer/fireman once his infection had cleared so that future pacemaker placement could be accomplished. We will proceed accordingly. Shubham Donald MD JTS/TI , 12:34 PM , 12:48 PM
--- NOTE | 2017-11-13 13:33 | MP ---
cc: Shubham Donald MD, Vinod B MD DATE OF OPERATION: 11/13/2017 PREOPERATIVE DIAGNOSIS: Medically intractable infection PD catheter exit tract. POSTOPERATIVE DIAGNOSIS: Medically intractable infection PD catheter exit tract. OPERATIVE PROCEDURE: Removal of peritoneal dialysis catheter. SURGEON: Shubham Donald MD ANESTHESIA: Local MAC. DESCRIPTION OF THE OPERATIVE PROCEDURE: With the patient in the supine position and under IV sedation, the abdomen thoroughly prepped with Betadine and draped in a sterile fashion. Skin and subcutaneous tissue surrounding the left paraumbilical peritoneal dialysis catheter placement scar was thoroughly infiltrated with 0.5% Marcaine with epinephrine. The existing scar was elliptically excised and dissection continued sharply through the underlying subcutaneous tissue. The peritoneal dialysis catheter was mobilized free. Both the muscular and subcutaneous catheter cuffs were completely mobilized free of surrounding adhesions, intraperitoneal and subcutaneous portions of the catheter removed entirely. The circular shaped rectus fascial defect was secured with interrupted 0 PDS. Cultures of the catheter tract were obtained. The wound irrigated with saline. Strict hemostasis assured. The incisions closed with continuous subcuticular 5-0 Monocryl. Steri-strips and a sterile dressing applied. No operative complications. Instrument, needle and sponge counts were correct x 2. The patient returned to the recovery room in stable condition having tolerated the procedure well. Shubham Donald MD JTS/DL/rr , 12:37 PM , 12:54 PM
[2017-11-13 15:05] VITALS: BP 157/89; PULSE 83; RESP 20; TEMP 97.6; O2SAT 94
--- NOTE | 2017-11-13 15:14 | RADRPT ---
EXAM DATE/TIME: 11/13/2017 15:20 [facility] COMPARISON: No previous studies available for comparison. INDICATIONS : Patient had infected PD cath removed. Now needs a dialysis catheter placed. Has central venous occlus ion on the right. MEDICAL HISTORY : 1. CAD 2. [place] 3. HTN 4. polycystic kidney disease SURGICAL HISTORY : 1. PD cath placement 2. perm cath placment and removal 3. TURP 4. CABG 5. bilateral partial renal artery embolization ENCOUNTER: Initial ACUITY: 3 days PAIN SCORE: 0/10 FLUORO TIME: 2.7 minutes IMAGE SERIES: 2 SEDATION TIME: 30 minutes ACCESS: Left internal jugular vein SEDATION: 1.) 1 mg midazolam (Versed) IV 2.) 150 mcg fentanyl (Sublimaze) IA Prophylactic antibiotics were administered with appropriate pre-procedure timing. Vancomycin within 2 hours of procedure, Ancef (or alternative) within 1 hour of procedure. DEVICE: 1. 15 Australian dual lumen 27 cm Conde II Plus catheter PROCEDURE : 1. Ultrasound-guided venipuncture. 2. PermaCath placement. 3. Conscious sedation with continuous EKG and oximetry monitoring. The risks, benefits and alternatives to the procedure were explained and verbal and written consent w as obtained. The site was prepped in sterile fashion. Full sterile technique was used, including ca p, mask, sterile gloves and gown and a large sterile sheet. Hand hygiene and 2% chlorhexidine and/or betadine/alcohol prep was utilized per protocol for cutaneous antisepsis. Sterile gel and sterile p robe cover were utilized for ultrasound guidance. The skin and subcutaneous tissues were infiltrated with local anesthetic solution. With ultrasound and fluoroscopic guidance a dermatotomy was created over the prescribed vein. A micr opuncture set was used to access the targeted vein and serial dilatation was performed to accept the prescribed length catheter. A subcutaneous tunnel was created in a retrograde fashion the catheter w as pulled through the tunnel. The catheter was flushed and assembled and locked with heparin. The c atheter was sutured in place. Conscious sedation was performed with the prescribed dosages and duration as above in the presence of an independent trained radiology nurse to assist in the monitoring of the patient. EKG and oximetry remained stable throughout the procedure. The patient tolerated the procedure well and there were n o complications. The patient was sent to post anesthesia recovery in stable condition. CONCLUSION: Uncomplicated PermaCath placement as above. Juwan Webb Jr., MD on November 13, 2017 at 15:12 Board Certified Radiologist. This report was verified electronically.
[2017-11-13 15:20] VITALS: BP 151/81; PULSE 73; RESP 20; O2SAT 94
[2017-11-13 15:50] VITALS: BP 163/84; PULSE 75; RESP 20; O2SAT 97
--- NOTE | 2017-11-13 16:11 | PD.RAD ---
Post Procedure Progress Note Pre Procedure Diagnosis: (1) ESRD on peritoneal dialysis (2) PD catheter dysfunction Post Procedure Diagnosis: (1) PD catheter dysfunction (2) ESRD on peritoneal dialysis Procedure Date: Nov 13, 2017 Supervising Radiologist: Juwan Webb JR Proceduralist/Assist: Esmer Arredondo, RT(R)(CV), Linda House RT(R) Anesthesia: Conscious Sedation Plan of Activity Patient to Unit: [facility] Patient Condition: Good See PACS Report for procedural detail/treatment Central Venous Access Device Procedure 1 Left Internal Jugular Hemodialysis Catheter Tunneled Placement dual lumen Bengali: 15 Findings: Occluded central venous structures on right. Placed LIJ permcath. This is in good position and functions well. OK to use. Plan Remove sutures in 2-3 weeks. Jr. Jon,Juwan Mahmood MD Nov 13, 2017 16:11
[2017-11-13 16:20] VITALS: BP_SYST 163; BP_SYST 164; BP_DIAS 84; BP_DIAS 86; PULSE 75; RESP 20; O2SAT 94
--- NOTE | 2017-11-13 16:33 | RADRPT ---
EXAM DATE/TIME: 11/13/2017 15:50 [facility] COMPARISON: No previous studies available for comparison. INDICATIONS : Bilateral leg swelling. MEDICAL HISTORY : Hypercholesterolemia. Myocardial infarction. Hypertension. Asthma. BPH. Polycystic kidney disease. Pe ritoneal dialysis. Gout. Anemia. SURGICAL HISTORY : Coronary artery stent.CABG Peritoneal port. TURP. Bilateral cataracts. ENCOUNTER: Initial ACUITY: 1 day PAIN SCORE: 2/10 LOCATION: Bilateral legs. TECHNIQUE: Venous ultrasound of the left and right leg was performed from the inguinal ligament to the proximal calf. Real-time, color Doppler and spectral tracing, compression and augmentation techniques were us ed. FINDINGS: RIGHT LEG: There is normal compressibility of the deep venous system from the inguinal region to the proximal ca lf. No echogenic clot is seen in the lumen of the common femoral, femoral, popliteal, and posterior tibial veins. There is a normal response of the venous system to proximal and distal augmentation an d respiration. LEFT LEG: There is normal compressibility of the deep venous system from the inguinal region to the proximal ca lf. No echogenic clot is seen in the lumen of the common femoral, femoral, popliteal, and posterior tibial veins. There is a normal response of the venous system to proximal and distal augmentation an d respiration. CONCLUSION: No evidence of DVT. Harpreet Kern MD on November 13, 2017 at 16:31 Board Certified Radiologist. This report was verified electronically.
[2017-11-13 17:40] VITALS: BP 195/78; PULSE 69; RESP 18; TEMP 97.4; O2SAT 100
--- NOTE | 2017-11-14 07:52 | EKG ---
Date Performed: 11/13/2017 Time Performed: 10:11:48 PTAGE: 67 years EKG: Sinus rhythm with Wenckebach AV block Low limb lead voltage Poor R-wave progression, cannot exclude old anterosep stacy infarct PREVIOUS TRACING 08/30/2008 Wenckebach AV block is new from the prior tracing. DOCTOR: Jeremy Julian Interpretating Date/Time 11/14/2017 07:50:53
== END | disposition home or self-care (01) ==
LOC: HSDC 09:02
PROVIDERS: ATTEND Surgery Vascular Surgery
DX: T85.71XA Infection and inflammatory reaction due to peritoneal dialysis catheter, initial encounter (principal); M79.89 Other specified soft tissue disorders; I25.10 Atherosclerotic heart disease of native coronary artery without angina pectoris; I44.2 Atrioventricular block, complete; L73.2 Hidradenitis suppurativa; I12.9 Hypertensive chronic kidney disease with stage 1 through stage 4 chronic kidney disease, or unspecified chronic kidney disease; N18.9 Chronic kidney disease, unspecified; N28.1 Cyst of kidney, acquired; I25.2 Old myocardial infarction
CPT/HCPCS: 36558; 76937; 77001; 80048; 85025; 87070; 87102; 87205; 87206; 93005; 93970; 99152; 99153; C1750; C1769; J1644; J2250; J3010; J3370; J7040; J7050